=== PATIENT | female | born 1975 | race Caucasian/White ===

== ENCOUNTER 2024-07-23 13:47 | Outpatient (CLI) | payer BC, SELFPAY | END 2024-07-23 13:48 | disposition home or self-care (01) | LOC: NFLDREF 07-24 08:46 | PROVIDERS: Visit Provider Physician Assistant | DX: R51.9 Headache, unspecified (principal); M54.2 Cervicalgia | CPT/HCPCS: 85379 ==

== ENCOUNTER 2024-10-08 07:09 | Outpatient (CLI) | payer BC, SELFPAY | END 2024-10-08 07:10 | disposition home or self-care (01) | LOC: MRI 07:11 | PROVIDERS: Visit Provider Orthopaedic Surgery | DX: M25.531 Pain in right wrist (principal); M67.431 Ganglion, right wrist; M25.431 Effusion, right wrist | CPT/HCPCS: 73221 ==

== ENCOUNTER 2025-01-01 06:11 | Day surgery (SDC) | payer BC, SELFPAY ==
[2025-01-01] VITALS (7 sets, daily range): BP systolic 102–128; BP diastolic 70–88; PULSE 59–72; RESP 16; TEMP 36–37; O2SAT 96–100; BMI 24.6
[2025-01-01] MEDS: LACTATED RINGERS 1000 ML 1,000 ML 100 ML IV (06:30)
[2025-01-01] MEDS: SODIUM CHLORIDE 0.9 % (FLUSH) 10 ML SYRINGE IVF (06:30)
--- NOTE | 2025-01-01 07:09 | P.ORPRC_ITS ---
Procedure Note Date of procedure: 01/01/25 Procedure: PREOPERATIVE DIAGNOSIS: 1. Right volar wrist ganglion cyst POSTOPERATIVE DIAGNOSIS: 1. Right volar wrist ganglion cyst PROCEDURE: 1. Right volar wrist ganglion cyst excision SURGEON: Sreedhar Patel MD. UNEMPLOYMENT INSURANCE HEARING OFFICER: Judy Vaughn P.A.-C. - An instructional support assistant was critical for this case to aid in patient positioning, tissue retraction, limb manipulation/positioning, and wound closure. ANESTHESIA: Local with monitored anesthesia care TOURNIQUET: Not utilized ESTIMATED BLOOD LOSS: 5 mL COMPLICATIONS: None SPECIMEN: Multi lobulated ganglion cyst sent for pathology. INDICATIONS: The patient is a 49-year-old female with a symptomatic volar radial ganglion cyst. Symptoms do not improve with conservative management, patient elected to proceed with surgical excision. Prior to surgery risks and benefits were discussed with patient, all questions were answered, and informed consent was obtained. FINDINGS: Multi lobulated ganglion cyst located deep in circumferential to the radial artery. DESCRIPTION OF PROCEDURE: Patient was seen preoperatively and operative site was marked. She was then brought to the operating room and placed supine on the operating table. Induction of anesthesia was undertaken. 1 g IV Ancef left administered for prophylaxis. A tourniquet placed in the patient's right forearm but was not utilized during the course of the procedure. Right upper extremity was prepped and draped in usual sterile fashion. A surgical time-out was performed confirming patient identity, surgical site, and surgical procedure. Longitudinal incision measuring approximately 3 cm was made over the volar aspect of the wrist just radial to the FCR tendon and ulnar to the radial artery. Incisions carried through subcutaneous tissues. The ganglion cyst was then readily identified. It was circumferentially dissected out from surrounding soft tissues using tenotomy scissors. The cyst was noted to be located deep, radial, and ulnar to the radial artery. Radial artery was carefully protected throughout the course of procedure. Bipolar electrocautery was used to cauterize small veins during the dissection. During the course that section small amount of gelatinous fluid is noted emanate from the cyst. The cyst was removed in 2 specimens and sent for pathology. Following removal cyst, wound was irrigated with copious amounts of normal saline. The radial artery was palpable and there was excellent capillary refill in all digits. Subcutaneous tissues were injected with 0.25% Marcaine. Wound closure was performed with 3-0 Vicryl inverted subcutaneous stitches, and a running 3-0 [place] cryl subcuticular stitch. Dermabond was then applied over the surgical incision followed by sterile dressing. Patient was then transferred the PACU in stable condition. POSTOPERATIVE PLAN: 1. Patient will be discharged to home day of surgery. 2. Ice and elevation as needed for pain and swelling. 3. Tylenol and/or ibuprofen as needed for pain. Tramadol as needed for more severe pain. 4. They were given instructions for wound care and finger range of motion exercises. 5. Return to the clinic for follow-up evaluation in 10-14 days for wound check and suture removal.
--- NOTE | 2025-01-01 07:09 | W.PM.H&PU ---
History & Physical Update History & Physical Update H&P Reviewed and patient assessed: No changes noted
[2025-01-01] MEDS: fentaNYL 100 MCG/2 ML inj IVP (07:10)
[2025-01-01] MEDS: MIDAZOLAM HCL 1 MG/ML inj IVP (07:10)
--- NOTE | 2025-01-01 07:11 | SUR.PREOP ---
TIME?OUT:?0709 PT/RN/MDA?VERIFICATION?OF?SURGICAL?SITE,?PROCEDURE,?AND?CONSENT OBTAINED?PRIOR?TO?INVASIVE?PROCEDURE.
[2025-01-01] MEDS: CEFAZOLIN 1 GM inj IVP (07:20)
[2025-01-01] MEDS: LIDOCAINE 1% MDV 20 ML INJECTION (08:46)
--- NOTE | 2025-01-01 09:01 | P.ANES_ITS ---
Anesthesia Charges Start Date/Time Anesthesia Start Date: 01/01/25 Anesthesia Start Time: 07:19 Stop Date/Time Anesthesia Stop Date: 01/01/25 Anesthesia Stop Time: 09:00 Coding CPT Codes CPT Codes: ANESTH LOWER ARM SURGERY - 95836 ([id number]) P1 - NORMAL HEALTHY PATIENT, QK - ASSURANCE SERVICES MANAGER HEALTH CARE 2-4 CNCRNT ANES PROC, QX - CURRENCY COUNTER SVJoyce W/ MED DIRECTION
--- NOTE | 2025-01-01 09:01 | W.ANESCHARGE ---
Anesthesia Charges Start Date/Time Anesthesia Start Date: 01/01/25 Anesthesia Start Time: 07:19 Stop Date/Time Anesthesia Stop Date: 01/01/25 Anesthesia Stop Time: 09:00 Coding CPT Codes CPT Codes: ANESTH LOWER ARM SURGERY - 83401 ([id number]) P1 - NORMAL HEALTHY PATIENT, QK - STERILE TECH 2-4 CNCRNT ANES PROC, QX - WHEEL TRUER SVJoyce W/ MED DIRECTION
--- NOTE | 2025-01-01 09:40 | W.PM.NB ---
Nerve Block Nerve Block Time Seen by Provider: 07:13 Date Seen: 01/01/25 Type of block requested by surgeon for post-operative analgesia: axillary Side: right Time out performed: Yes Verification of patient name: Yes Verification of date of : Yes Site marking: site marked Name of person performing procedure: Bill Continuous monitoring Was continuous monitoring of O2 sat, B/P, construction project coordinator, recorded every 15 minutes?: Yes Procedure Checklist: sterile prep, needles and gloves Ultrasound guided. Images saved: Yes Medications given in 5ml increments after negative aspiration: Ropivicaine %: 0.5 mL: 10 Needle gauge: 22 and Lidocaine %: 2 mL: 15 Patient tolerated procedure well: Yes Additional comments: Needle noted adjacent to nerve Block Charges Block Charge (with Pro Fee): Brachial Plexus Use of Ultrasound Machine for Block: Yes- US Guidance/pain block
--- NOTE | 2025-01-01 09:41 | P.ANES_ITS ---
Anesthesia Charges Start Date/Time Anesthesia Start Date: 01/01/25 Anesthesia Start Time: 07:19 Stop Date/Time Anesthesia Stop Date: 01/01/25 Anesthesia Stop Time: 09:00 Coding CPT Codes CPT Codes: ANESTH LOWER ARM SURGERY - 18789 ([id number]) P1 - NORMAL HEALTHY PATIENT, QX - SEAT SCOOPER MACHINE FARIDEH W/ MED DIRECTION, QK - RECRUITING INTERN 2-4 CNCRNT ANES PROC
--- NOTE | 2025-01-01 09:41 | W.ANESCHARGE ---
Anesthesia Charges Start Date/Time Anesthesia Start Date: 01/01/25 Anesthesia Start Time: 07:19 Stop Date/Time Anesthesia Stop Date: 01/01/25 Anesthesia Stop Time: 09:00 Coding CPT Codes CPT Codes: ANESTH LOWER ARM SURGERY - 39404 ([id number]) P1 - NORMAL HEALTHY PATIENT, QX - CARDIAC REHABILITATION SPECIALIST FARIDEH W/ MED DIRECTION, QK - METALLURGICAL ANALYST 2-4 CNCRNT ANES PROC
== END 2025-01-01 10:18 | disposition home or self-care (01) ==
LOC: OR 06:12
PROVIDERS: PCP Internal Medicine; Visit Provider Orthopaedic Surgery
PROC: (CPT 25111; principal; 2025-01-01 07:15)
DX: M67.431 Ganglion, right wrist (principal); G89.18 Other acute postprocedural pain
CPT/HCPCS: 25111; 01810; 64415; 76942; 88304; J2003; J0690; J1100; J2250; J2405; J2704; J2795; J3010; J7120